=== PATIENT | female | born 1970 | race Asian ===

== ENCOUNTER 2017-08-08 08:16 | Emergency (ER) | payer OTHER ==
[2017-08-08 08:24] VITALS: BP 148/95
[2017-08-08 09:23] LABS: Basophils % (Auto) 0.7 % (0.0-1.8); Eosinophils % (Auto) 0.5 % (0.0-4.3); Hematocrit 40.7 % (30.3-42.9); Hemoglobin 14.2 gm/dl (10.1-14.3); Lymphocytes # (Auto) 2.3 K/mm3 (1.2-5.4); Lymphocytes % (Auto) 47.8 % (13.4-35.0); Mean Corpuscular HGB Conc 35 % (30-34); Mean Corpuscular Hemoglobin 31 pg (28-32); Mean Corpuscular Volume 90 fl (79-97); Monocytes # (Auto) 0.3 K/mm3 (0.0-0.8); Monocytes % (Auto) 6.9 % (0.0-7.3); Platelet Count 202 K/mm3 (140-440); Red Blood Count 4.54 M/mm3 (3.65-5.03); Red Cell Distribution Width 12.9 % (13.2-15.2)
[2017-08-08 09:38] LABS: BUN/Creatinine Ratio 12; Blood Urea Nitrogen 7 mg/dL (7-17); Hemolysis Index 15
[2017-08-08] MEDS ORDERED: K-DUR PO ONE (10:34)
--- NOTE | 2017-08-08 11:12 | Emergency Department Report ---
ED Chest Pain HPI - General Chief Complaint: Chest Pain Stated Complaint: ABD PAIN/CP Time Seen by Provider: 08/08/17 10:33 Source: patient Mode of arrival: Ambulatory Limitations: No Limitations - History of Present Illness Initial Comments: Patient states that she has soreness around her loop recorder when she tries to have a bowel movement. The reason why she is here is because she hasn't had a bowel movement for 3 days. She is not vomiting. She has chronic constipation and takes lactulose. She complains of abdominal discomfort only associated with constipation which is intermittent and crampy epigastric in location. She has had the symptoms chronically. She denies any fever or chills or signs of GI bleeding. Patient states she has had 3 negative cardiac catheterizations. She has never been treated with a stent or angioplasty. Not withstanding that she has a complex cardiac history and a loop recorder. She has had 2 ablations. She states that she has moved up here from [place] and does not have a doctor. MD Complaint: other (constipation) -: days(s) Onset: during rest Pain Location: other ("around my loop recorder".) Pain Radiation: none Severity: mild, moderate Quality: other (soreness) Consistency: intermittent Improves With: nothing Worsens With: other (straining at stool) Context: other (chronic issues) re: other (constipation) Treatments Prior to Arrival: none - Related Data Previous Rx's Medication Instructions Recorded Last Taken Type Bisacodyl [Dulcolax suppos] 10 mg ME ONCE #7 supp.rect 08/08/17 Unknown Rx traMADol [Ultram] 50 mg PO Q6HR PRN #14 tablet 08/08/17 Unknown Rx Allergies Allergy/AdvReac Type Severity Reaction Status Date / Time acetaminophen [From Lortab] Allergy Vomiting Verified 08/08/17 08:26 hydrocodone [From Lortab] Allergy Vomiting Verified 08/08/17 08:26 hydroxychloroquine Allergy Dizziness Verified 08/08/17 08:26 [From Plaquenil] levofloxacin [From Levaquin] Allergy Swelling Verified 08/08/17 08:26 lisinopril Allergy Angioedema Verified 08/08/17 08:26 morphine Allergy Swelling Verified 08/08/17 08:26 Penicillins Allergy Angioedema Verified 08/08/17 08:26 Sulfa (Sulfonamide Allergy Hives Verified 08/08/17 08:26 Antibiotics) steroids Allergy Swelling Uncoded 08/08/17 08:26 Heart Score - HEART Score History: Slightly suspicious EKG: Normal Age: < 45 Risk factors: No known risk factors Troponin: < normal limit HEART Score: 0 - Critical Actions Critical Actions: 0-3 pts:0.9-1.7%risk of adverse cardiac event.Candidate for discharge ED Review of Systems ROS: Stated complaint: ABD PAIN/CP Other details as noted in HPI Constitutional: denies: chills, fever Eyes: denies: eye pain, eye discharge, vision change ENT: denies: ear pain, throat pain Respiratory: denies: cough, shortness of breath, wheezing Cardiovascular: chest pain. denies: palpitations Endocrine: no symptoms reported Gastrointestinal: abdominal pain, constipation. denies: nausea, diarrhea Genitourinary: denies: urgency, dysuria, discharge Musculoskeletal: denies: back pain, joint swelling, arthralgia Skin: denies: rash, lesions Neurological: denies: headache, weakness, paresthesias Psychiatric: denies: anxiety, depression Hematological/Lymphatic: denies: easy bleeding, easy bruising ED Past Medical Hx - Past Medical History Additional medical history: Lupus, RA, fibromyalgia, bartter syndrome, hypokalemia. See HPI - Surgical History Additional Surgical History: Loop recorder, SVT ablation, tubal ligation, knee surgery, endometriosis surgery - Social History Smoking Status: Never Smoker Substance Use Type: None - Medications Home Medications: Home Medications Medication Instructions Recorded Confirmed Last Taken Type Bisacodyl [Dulcolax suppos] 10 mg ME ONCE #7 supp.rect 08/08/17 Unknown Rx traMADol [Ultram] 50 mg PO Q6HR PRN #14 tablet 08/08/17 Unknown Rx ED Physical Exam - General Limitations: No Limitations General appearance: alert, in no apparent distress - Head Head exam: Present: atraumatic, normocephalic - Eye Eye exam: Present: normal appearance. Absent: scleral icterus - ENT ENT exam: Present: mucous membranes moist - Neck Neck exam: Present: normal inspection. Absent: tenderness, meningismus - Respiratory Respiratory exam: Present: normal lung sounds bilaterally. Absent: respiratory distress - Cardiovascular Cardiovascular Exam: Present: regular rate, normal rhythm. Absent: systolic murmur, diastolic murmur, rubs, gallop - GI/Abdominal GI/Abdominal exam: Present: soft, normal bowel sounds. Absent: distended, tenderness, guarding, rebound, rigid - Extremities Exam Extremities exam: Present: normal inspection - Back Exam Back exam: Present: normal inspection - Neurological Exam Neurological exam: Present: alert, oriented X3, CN II-XII intact. Absent: motor sensory deficit - Psychiatric Psychiatric exam: Present: normal affect, normal mood - Skin Skin exam: Present: warm, dry, intact, normal color. Absent: rash ED Course Vital Signs 08/08/17 08:20 Temperature 97.9 F Pulse Rate 77 Respiratory 20 Rate Blood Pressure 148/95 O2 Sat by Pulse 100 Oximetry DARWIN score - Darwin Score Age > 65: (0) No Aspirin use within the Past 7 Days: (0) No 3 or more CAD Risk Factors: (0) No 2 or more Angina events in past 24 hrs: (0) No Known CAD with more than 50% Stenosis: (0) No Elevated Cardiac Markers: (0) No ST Deviation Greater than 0.5mm: (0) No DARWIN Score: 0 ED Medical Decision Making - Lab Data Result diagrams: 08/08/17 09:03 08/08/17 09:03 Laboratory Results - last 24 hr 08/08/17 08/08/17 09:03 09:03 WBC 4.7 RBC 4.54 Hgb 14.2 Hct 40.7 MCV 90 MCH 31 MCHC 35 H RDW 12.9 L Plt Count 202 Lymph % (Auto) 47.8 H [place] % (Auto) 6.9 Eos % (Auto) 0.5 Baso % (Auto) 0.7 Lymph # 2.3 [place] # 0.3 Eos # 0.0 Baso # 0.0 Seg Neutrophils % 44.1 Seg Neutrophils # 2.1 Sodium 143 Potassium 3.0 L Chloride 102.0 Carbon Dioxide 28 Anion Gap 16 BUN 7 Creatinine 0.6 L Estimated GFR > 60 BUN/Creatinine Ratio 12 Glucose 89 Calcium 9.0 Troponin T < 0.010 - EKG Data -: EKG Interpreted by Me EKG shows normal: sinus rhythm (first degree block), axis, intervals, QRS complexes, ST-T waves Rate: normal - EKG Data Interpretation: no acute changes - Radiology Data Radiology results: report reviewed Critical care attestation.: If time is entered above; I have spent that time in minutes in the direct care of this critically ill patient, excluding procedure time. ED Disposition Clinical Impression: Hypokalemia Abdominal pain Qualifiers: Abdominal location: epigastric Qualified Code(s): R10.13 - Epigastric pain Chest pain Qualifiers: Chest pain type: unspecified Qualified Code(s): R07.9 - Chest pain, unspecified Constipation Qualifiers: Constipation type: unspecified constipation type Qualified Code(s): K59.00 - Constipation, unspecified Disposition: TO HOME OR SELFCARE Is pt being admited?: No Does the pt Need Aspirin: No Condition: Stable Instructions: Chest Pain (ED), Abdominal Pain (ED), Constipation (ED), Hypokalemia (ED) Additional Instructions: Follow up with a primary care provider such as possibilities listed. Also follow up with bander and cellophaner machine. Return to the emergency department any acute change or problems as needed. Rx as directed. Prescriptions: Bisacodyl [Dulcolax suppos] 10 mg ME ONCE #7 supp.rect traMADol [Ultram] 50 mg PO Q6HR PRN #14 tablet PRN Reason: Pain Referrals: MELINDA HOANG MD [Primary Care Provider] - 3-5 Days [facility] [Provider Group] - 3-5 Days DAHLIA SPENCE MD [Staff Physician] - 3-5 Days Time of Disposition: 11:27
[2017-08-08] MEDS ORDERED: ULTRAM PO ONE (11:31)
== END 2017-08-08 12:28 | disposition home or self-care (01) ==
LOC: ED 08:16
DX: K59.00 Constipation, unspecified (principal); M32.9 Systemic lupus erythematosus, unspecified; M06.9 Rheumatoid arthritis, unspecified; R07.9 Chest pain, unspecified; E87.6 Hypokalemia; Z98.51 Tubal ligation status; Z88.8 Allergy status to other drugs, medicaments and biological substances; Z88.6 Allergy status to analgesic agent
CPT/HCPCS: 36415; 80048; 84484; 85025; 93005; 93010; 99284